=== PATIENT | female | born 1995 | race Caucasian/White ===

== ENCOUNTER 2017-07-16 16:29 | Inpatient (IN) | payer BC ==
[2017-07-16] MEDS ORDERED: Sodium Chloride 0.9% 10 ML Syringe FLUSH PRN (16:46)
[2017-07-16] MEDS ORDERED: fentaNYL 100 MCG/2 ML SDV IVPUSH PRN (16:46)
[2017-07-16] MEDS ORDERED: Ondansetron 4 MG Tab.DIS PO PRN (16:46)
[2017-07-16] MEDS ORDERED: Acetaminophen 325 MG Tab PO PRN ×2 (16:46→23:14)
--- NOTE | 2017-07-16 16:55 | PCM.LDHP ---
L&D History of Present Illness - General Date of Service: 07/16/17 (Labor) Admit Problem/Dx: Patient Status Order with Admit Dx/Problem 07/16/17 16:46 Patient Status [ADT] Routine Admission Diagnosis/Problem Admission Diagnosis/Problem Source of Information: Patient History Limitations: Reports: No Limitations - History of Present Illness Introduction:: This 21 year old G1 Po who is 39 6/7 weeks presents in active labor after SROM at home. Clear fluid and baby is moving, CE by staff 4-5/100/0 and leaking clear fluid. 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 Para: 0 LMP (Approximate): (NAN 07/17/17) H&P Review of Systems - Review of Systems: Review Of Systems: See Below General: Reports: No Symptoms HEENT: Reports: No Symptoms Pulmonary: Reports: No Symptoms Cardiovascular: Reports: No Symptoms Gastrointestinal: Reports: No Symptoms Genitourinary: Reports: No Symptoms Musculoskeletal: Reports: No Symptoms Skin: Reports: No Symptoms Psychiatric: Reports: No Symptoms Neurological: Reports: No Symptoms Hematologic/Lymphatic: Reports: No Symptoms Immunologic: Reports: No Symptoms L&D Exam - Exam Exam: See Below - OB Specific Contraction Intensity: Moderate to Strong Movement: Active Heart Tones: Present Heart Tones per Min: 145 Heart Rate (FHR) Variability: Moderate (6-25 bmp) Presentation: Vertex Estimated Weight: 7-8 pounds - Coats Score Coats Score Cervix Position: Anterior Coats Score Consistency: Soft Coats Score Effacement: >80% Coats Score Dilation: > 5 cm Coats Score Infant's Station: -1 ,0 Coats Score Total: 12 - Exam General: Alert, Oriented HEENT: PERRLA, Conjunctiva Clear, EACs Clear, EOMI, Hearing Intact, Mucosa Moist & [place], Nares Patent, Normal Nasal Septum, Posterior Pharynx Clear, TMs Clear Neck: Supple, Trachea Midline Lungs: Clear to Auscultation, Normal Respiratory Effort Cardiovascular: Regular Rate, Regular Rhythm GI/Abdominal Exam: Normal Bowel Sounds, Soft, Non-Tender, No Organomegaly, No Distention, No Abnormal Bruit, No Mass, Pelvis Stable Rectal Exam: Normal Exam, Normal Rectal Tone Genitourinary: Normal external exam, Normal bimanual exam, Normal speculum exam Back Exam: Normal Inspection, Full Range of Motion Extremities: Normal Inspection, Normal Range of Motion, Non-Tender, No Pedal Edema, Normal Capillary Refill Skin: Warm, Dry, Intact Neurological: Cranial Nerves Intact, Reflexes Equal Bilateral Psychiatric: Alert, Normal Affect, Normal Mood - Problem List (1) Spontaneous rupture of amniotic membranes SNOMED Code(s): 568337550 ICD Code: [id number] - Status: Acute Current Visit: Yes (2) Active labor at term SNOMED Code(s): 24185765 ICD Code: [id number] - Status: Acute Current Visit: Yes Problem List Initiated/Reviewed/Updated: Yes Orders Last 24hrs: Active Orders 24 hr Category Date Time Status Patient Status [ADT] Routine ADT 07/16/17 16:46 Ordered Antiembolic Devices [RC] .Routine Care 07/16/17 16:48 Ordered Communication Order [RC] ASDIRECTED Care 07/16/17 16:46 Ordered Heart Tones [RC] PER UNIT ROUTINE Care 07/16/17 16:46 Ordered May Shower [RC] ASDIRECTED Care 07/16/17 16:46 Ordered Notify Provider Vital Signs [RC] PRN Care 07/16/17 16:46 Ordered Notify Provider [RC] PRN Care 07/16/17 16:46 Ordered Up ad Mimi [RC] ASDIRECTED Care 07/16/17 16:46 Ordered VTE/DVT Education [RC] Click to Edit Care 07/16/17 16:48 Ordered Vital Signs [RC] PER UNIT ROUTINE Care 07/16/17 16:46 Ordered Clear Liquid Diet [DIET] Diet 07/16/17 Dinner Ordered CBC W/O DIFF,HEMOGRAM [HEME] Urgent Lab 07/16/17 16:46 Ordered DRUG SCREEN, URINE [URCHEM] Routine Lab 07/16/17 16:46 Ordered Acetaminophen [Tylenol] Med 07/16/17 16:46 Ordered 650 mg PO Q4H PRN Lactated Ringers @ 125 MLS/HR(1000ml) Med 07/16/17 17:00 Ordered Lactated Ringers [Ringers, Lactated] 1,000 ml IV ASDIRECTED Ondansetron [Zofran ODT] Med 07/16/17 16:46 Ordered 4 mg PO Q4H PRN Sodium Chloride 0.9% [Saline Flush] Med 07/16/17 16:46 Ordered 10 ml FLUSH ASDIRECTED PRN fentaNYL [Sublimaze] Med 07/16/17 16:46 Ordered 100 mcg IVPUSH Q1H PRN DVT/VTE Prophylaxis Reflex [OM.PC] Routine Oth 07/16/17 16:46 Ordered Saline Lock Insert [OM.PC] Routine Oth 07/16/17 16:46 Ordered Resuscitation Status Routine Resus Stat 07/16/17 16:46 Ordered Assessment/Plan Comment:: 07/16/17 21 year old G1 39 6/7 weeks, SROM at home with active labor pain management per patient request Plan for vaginal delivery
[2017-07-16] MEDS ORDERED: Lactated Ringers 1,000 ML IV SCH (17:00)
[2017-07-16] MEDS ORDERED: ePHEDrine 50 MG/ML SDV ONE (17:30)
--- NOTE | 2017-07-16 17:58 | PCM.PNLD ---
Labor Progress Note - VS & Meds Vital Signs: Last Vital Signs Temp 96.1 F 07/16/17 16:58 Pulse 102 H 07/16/17 16:58 Resp 18 07/16/17 16:58 BP 108/72 07/16/17 16:58 Pulse Ox 98 07/16/17 16:58 Active Medications: Current Medications Acetaminophen (Tylenol) 650 mg PO Q4H PRN PRN Reason: Pain (Mild 1-3) and fever Fentanyl (Sublimaze) 100 mcg IVPUSH Q1H PRN PRN Reason: Pain (moderate 4-6) Lactated Ringer's (Ringers, Lactated) 1,000 mls @ 125 mls/hr IV ASDIRECTED ERLIN Last Admin: 07/16/17 17:54 Dose: 125 mls/hr Oxytocin/Sodium Chloride (Pitocin In Ns 20 Units/1,000 Ml) 20 unit in 1,000 mls @ 6 mls/hr IV TITRATE ERLIN; Protocol Ondansetron HCl (Zofran Odt) 4 mg PO Q4H PRN PRN Reason: Nausea/Vomiting Sodium Chloride (Saline Flush) 10 ml FLUSH ASDIRECTED PRN PRN Reason: Keep Vein Open Discontinued Medications Ephedrine Sulfate (Ephedrine Sulfate) Confirm Administered Dose 50 mg .ROUTE .STK-MED ONE Stop: 07/16/17 17:31 - Uterine Contractions Uterine Monitoring Mode: External [place] Contraction Frequency (min): 1.5-2 Contraction Duration (sec): 6-80 Contraction Intensity: Moderate to Strong Uterine Resting Tone: Soft - Monitoring Monitor Mode: External Ultrasound Heart Rate (FHR) Variability: Moderate (6-25 bmp) Accelerations: Present, 15x15 Decelerations: None Strip Review: Category I - Vaginal Exam Dilation (cm): 7 Effacement (Percent): 100 Station: 0 Cervical Position: Anterior Sterile Vaginal Exam Performed By: Sofi Johnson Vaginal Exam Comment: ce before epidural - Labor Progress (Free Text) Labor Progress: Was in tub before epidural Now comfortable Planning vaginal delivery
[2017-07-16] MEDS ORDERED: Lanolin 100% Cream 40 GM Tube TOP PRN (20:50)
--- NOTE | 2017-07-16 20:52 | PCM.DEL ---
<Clara Kirk - Last Filed: 07/16/17 20:46> L & D Note - General Info Date of Service: 07/16/17 Mother's Due Date: 07/17/17 - Delivery Note Labor: Spontaneous Delivery Outcome: Livebirth Delivery Method: Spontaneous Vaginal Delivery-Single Presentation: Right Occiput Anterior ([place]) Nuchal Cord: None Anesthesia Type: Epidural (1744) Amniotic Fluid Description: Clear Episiotomy Type: None Laceration: Labial (1st degree right labial tear, not bleeding, not repaired) Placenta: Intact (bilobed with battledwarf insertion), Expressed Cord: 3 Vessels, True Knot Resuscitation Needed: No : Bulb Syringe, Stimulated, [place] Used Provider: Sofi Johnson Score 1 min: 9 Score 5 min: 9 Second Stage Interventions: Reports: Encouragement Given, Laboring Down, Pushing Effectively, Pushing, Feet in Foot Rests, Pushing, Squat Bar Pulling on Sheet (Pushing, hands and knees) Delivery Comments (Free Text/Narrative):: Stage 1 of Labor: 4512-1190; epidural placed Stage 2 of Labor: 5195-7318; 21 yo G1 now P1 at 39w6d delivered healthy baby girl in [place] at 2011 via . Effective pushing with bar and sheet, on hands and knees, and with knees to chest. Baby was placed on chest for [id number], bulb suctioned, with APGARs of 9 and 9, and weighed 8lb 6oz. First degree right labial tear, not bleeding, not repaired. Stage 3 of Labor: ; Placenta delivered with pitocin, gentle cord traction, fundal massage, and intentional pushing by mother. Placenta was bilobed and was found to have true knot with battledwarf insertion. EBL: 300mL - General Info Date of Service: 07/16/17 Functional Status: Reports: Pain Controlled - Review of Systems General: Reports: No Symptoms HEENT: Reports: No Symptoms Pulmonary: Reports: No Symptoms Cardiovascular: Reports: No Symptoms Gastrointestinal: Reports: No Symptoms Genitourinary: Reports: No Symptoms Musculoskeletal: Reports: No Symptoms Skin: Reports: No Symptoms Neurological: Reports: No Symptoms Psychiatric: Reports: No Symptoms - Patient Data Vitals - Most Recent: Last Vital Signs Temp 96.1 F 07/16/17 16:58 Pulse 96 07/16/17 18:30 Resp 18 07/16/17 18:30 BP 101/58 L 07/16/17 18:30 Pulse Ox 96 07/16/17 18:30 Weight - Most Recent: 216 lb Lab Results Last 24 Hours: Laboratory Results - last 24 hr 07/16/17 Range/Units 16:46 WBC 12.1 H (4.5-11.0) K/uL RBC 5.40 (3.30-5.50) M/uL Hgb 13.1 (12.0-15.0) g/dL Hct 40.2 (36.0-48.0) % MCV 74 L (80-98) fL MCH 24 L (27-31) pg MCHC 33 (32-36) % Plt Count 226 (150-400) K/uL Med Orders - Current: Current Medications Acetaminophen (Tylenol) 650 mg PO Q4H PRN PRN Reason: Pain (Mild 1-3) and fever Fentanyl (Sublimaze) 100 mcg IVPUSH Q1H PRN PRN Reason: Pain (moderate 4-6) Lactated Ringer's (Ringers, Lactated) 1,000 mls @ 125 mls/hr IV ASDIRECTED ERLIN Last Admin: 07/16/17 17:54 Dose: 125 mls/hr Oxytocin/Sodium Chloride (Pitocin In Ns 20 Units/1,000 Ml) 20 unit in 1,000 mls @ 6 mls/hr IV TITRATE ERLIN; Protocol Last Admin: 07/16/17 18:45 Dose: 999 munits/min, 2,997 mls/hr Ondansetron HCl (Zofran Odt) 4 mg PO Q4H PRN PRN Reason: Nausea/Vomiting Sodium Chloride (Saline Flush) 10 ml FLUSH ASDIRECTED PRN PRN Reason: Keep Vein Open Discontinued Medications Ephedrine Sulfate (Ephedrine Sulfate) Confirm Administered Dose 50 mg .ROUTE .STK-MED ONE Stop: 07/16/17 17:31 - Exam General: Alert, Oriented, No Acute Distress HEENT: EOMI, Mucous Membr. Moist/[place] Neck: Supple, Trachea Midline Lungs: Normal Respiratory Effort Cardiovascular: Regular Rate, Regular Rhythm GI/Abdominal Exam: Soft (with firm uterus), Non-Tender, No Distention (Female) Exam: Normal External Exam (except small first degree right labial tear, not bleeding, no need for repair) Back Exam: Normal Inspection, Full Range of Motion Extremities: Normal Inspection, Normal Range of Motion, Non-Tender, No Pedal Edema Skin: Warm, Dry, Intact Neurological: No New Focal Deficit Psy/Mental Status: Alert, Normal Affect, Normal Mood - Problem List & Annotations (1) Spontaneous vaginal delivery SNOMED Code(s): 58618311 Code(s): O80 - ENCOUNTER FOR FULL-TERM UNCOMPLICATED DELIVERY Status: Acute Priority: High Current Visit: Yes - Problem List Review Problem List Initiated/Reviewed/Updated: Yes - Plan Plan:: 07/16/17 21 year old G1 39 6/7 weeks, SROM at home with active labor pain management per patient request Plan for vaginal delivery 07/16/17 21 yo G1 now P1 at 39 6/7 had . Mom and baby doing well. Routine cares check vitals, monitor bleeding, ambulate as able Diet: regular RACQUEL for pain <Sofi Johnson - Last Filed: 07/17/17 08:42> - Patient Data Vitals - Most Recent: Last Vital Signs Temp 97.3 F 07/17/17 08:03 Pulse 79 07/17/17 08:03 Resp 16 07/17/17 08:03 BP 115/70 07/17/17 08:03 Pulse Ox 98 07/17/17 08:03 I&O - Last 24 Hours: Intake & Output 07/16/17 07/17/17 07/17/17 22:59 06:59 14:59 Intake Total 1000 Balance 1000 Lab Results Last 24 Hours: Laboratory Results - last 24 hr 07/16/17 07/16/17 07/17/17 Range/Units 16:46 20:50 05:11 WBC 12.1 H 14.8 H (4.5-11.0) K/uL RBC 5.40 4.60 (3.30-5.50) M/uL Hgb 13.1 11.3 L (12.0-15.0) g/dL Hct 40.2 34.4 L (36.0-48.0) % MCV 74 L 75 L (80-98) fL MCH 24 L 25 L (27-31) pg MCHC 33 33 (32-36) % Plt Count 226 192 (150-400) K/uL Neut % (Auto) 73 H (36-66) % Lymph % (Auto) 16 L (24-44) % [place] % (Auto) 10 H (2-6) % Eos % (Auto) 1 L (2-4) % Baso % (Auto) 0 (0-1) % Blood Type AB NEGATIVE Gel Antibody Screen Positive A* Antibody Identification Undetermined Specific Rhogam Indicated Yes, baby rh pos Med Orders - Current: Current Medications Acetaminophen (Tylenol) 650 mg PO Q4H PRN PRN Reason: Pain (mild 1-3) Emollient Ointment (Lansinoh Hpa) 0 gm TOP ASDIRECTED PRN PRN Reason: Sore Nipples Last Admin: 07/17/17 01:07 Dose: 1 applic Lactated Ringer's (Ringers, Lactated) 1,000 mls @ 125 mls/hr IV ASDIRECTED ERLIN Last Admin: 07/16/17 17:54 Dose: 125 mls/hr Ibuprofen (Motrin Bulk Bottle) 600 mg PO Q6H PRN PRN Reason: Cramping Last Admin: 07/17/17 01:07 Dose: 600 mg Ondansetron HCl (Zofran Odt) 4 mg PO Q4H PRN PRN Reason: Nausea/Vomiting Sodium Chloride (Saline Flush) 10 ml FLUSH ASDIRECTED PRN PRN Reason: Keep Vein Open Discontinued Medications Acetaminophen (Tylenol) 650 mg PO Q4H PRN PRN Reason: Pain (Mild 1-3) and fever Ephedrine Sulfate (Ephedrine Sulfate) Confirm Administered Dose 50 mg .ROUTE .STK-MED ONE Stop: 07/16/17 17:31 Last Admin: 07/16/17 23:13 Dose: Not Given Fentanyl (Sublimaze) 100 mcg IVPUSH Q1H PRN PRN Reason: Pain (moderate 4-6) Oxytocin/Sodium Chloride (Pitocin In Ns 20 Units/1,000 Ml) 20 unit in 1,000 mls @ 6 mls/hr IV TITRATE ERLIN; Protocol Last Admin: 07/16/17 18:45 Dose: 999 munits/min, 2,997 mls/hr - Exam (Female) Exam: Cervical Dilatation, Enlarged Uterus, Vaginal Bleeding - Problem List & Annotations (1) Spontaneous rupture of amniotic membranes SNOMED Code(s): 424525417 Code(s): FFY5868 - Status: Acute Current Visit: Yes (2) Active labor at term SNOMED Code(s): 87535573 Code(s): UJL8199 - Status: Acute Current Visit: Yes (3) Spontaneous vaginal delivery SNOMED Code(s): 43968917 Code(s): O80 - ENCOUNTER FOR FULL-TERM UNCOMPLICATED DELIVERY Status: Acute Priority: High Current Visit: Yes - My Orders Last 24 Hours: My Active Orders 07/16/17 16:46 Communication Order [RC] ASDIRECTED May Shower [RC] ASDIRECTED Notify Provider Vital Signs [RC] PRN Notify Provider [RC] PRN Up ad Mimi [RC] ASDIRECTED Vital Signs [RC] Q4H DRUG SCREEN, URINE [URCHEM] Routine Ondansetron [Zofran ODT] 4 mg PO Q4H PRN Sodium Chloride 0.9% [Saline Flush] 10 ml FLUSH ASDIRECTED PRN DVT/VTE Prophylaxis Reflex [OM.PC] Routine Saline Lock Insert [OM.PC] Routine Resuscitation Status Routine 07/16/17 16:48 Antiembolic Devices [RC] .Routine VTE/DVT Education [RC] Click to Edit 07/16/17 17:00 Lactated Ringers [Ringers, Lactated] 1,000 ml IV ASDIRECTED 07/16/17 17:30 Hale Catheter Insertion [Insert Urinary Catheter] [OM.PC] Q24H 07/16/17 20:50 Patient Status [ADT] Routine ANTIBODY IDENTIFICATION [BBK] Routine SCREEN [BBK] Routine RHIG WORKUP, [BBK] Routine Lanolin [Lansinoh HPA] 0 gm TOP ASDIRECTED PRN 07/16/17 20:52 Peripheral IV Discontinue [OM.PC] Routine 07/16/17 23:14 Acetaminophen [Tylenol] 650 mg PO Q4H PRN 07/16/17 23:15 Ibuprofen [Motrin Bulk Bottle] 600 mg PO Q6H PRN 07/16/17 23:47 RH IMMUNE GLOBULIN [BBK] Routine 07/17/17 08:36 Ready for Discharge [RC] PER UNIT ROUTINE 04/02/18 Breakfast Regular Diet [DIET] - Assessment Assessment:: 21 year old G1 now P1 without complications, small right labial tear, not repaired - Plan Plan:: I Sofi Johnson APRN, CNM, CFCORINA was present for the entire delivery procedure and attest that the operative note is accurate as written
[2017-07-16] MEDS ORDERED: Ibuprofen 200 MG Tab, 24 Tab Bulk Bottle PO PRN (23:15)
--- NOTE | 2017-07-17 03:21 | ANES ---
DATE OF SERVICE: 07/16/2017 LABOR EPIDURAL NOTE INDICATIONS: I was called by the OB department for a young lady requesting a labor epidural for labor pains. I was at the bedside with the patient and . Discussed a brief history and physical with the patient. The patient stated that she had no abnormal bleeding issues and her was uneventful. Platelet count was approximately 240 prior to the epidural and 1 L fluid was almost in when I was at the bedside. I discussed some risks and benefits with the patient, and the patient verbalized understanding and wished to proceed with the labor epidural. DESCRIPTION OF PROCEDURE: The patient was already sitting at the edge of bed. I Betadine prepped the lumbar region x3. I then placed a sterile drape and 1% lidocaine skin wheal and deep was done. A 17-gauge Tuohy needle was inserted at approximately the L4-L5 space. Loss of resistance was achieved. Negative CSF, negative paresthesia, negative heme were noted. Catheter was then easily placed through the Tuohy and the Tuohy needle was withdrawn without difficulty. Catheter was then pulled back to approximately 13 cm and securely taped and fastened. A 3 mL test dose was done. The patient showed no signs of local anesthetic toxicity or subarachnoid block. The patient was then laid supine with left uterine displacement. I then proceeded to give her 12 mL of 0.2% ropivacaine via the epidural and started her on a 0.2% ropivacaine drip at 12 mL an hour. Vital signs were stable throughout the procedure. The patient tolerated the procedure well. Post procedure and post ropivacaine bolus, vital signs were stable. The patient stated that she was comfortable and happy when I left the bedside. Time-out was done prior to the procedure starting. José Miguel Lima CRNA /[id number]
--- NOTE | 2017-07-17 08:35 | PCM.PNPP ---
- General Info Date of Service: 07/17/17 Admission Dx/Problem (Free Text): Patient Status Order with Admit Dx/Problem 07/16/17 16:46 Patient Status [ADT] Routine Admission Diagnosis/Problem Admission Diagnosis/Problem Functional Status: Reports: Pain Controlled - Review of Systems General: Reports: No Symptoms HEENT: Reports: No Symptoms Pulmonary: Reports: No Symptoms Cardiovascular: Reports: No Symptoms Gastrointestinal: Reports: No Symptoms Genitourinary: Reports: No Symptoms Musculoskeletal: Reports: No Symptoms Skin: Reports: No Symptoms Neurological: Reports: No Symptoms Psychiatric: Reports: No Symptoms - General Info Date of Service: 07/17/17 - Patient Data Vital Signs - Most Recent: Last Vital Signs Temp 97.3 F 07/17/17 08:03 Pulse 79 07/17/17 08:03 Resp 16 07/17/17 08:03 BP 115/70 07/17/17 08:03 Pulse Ox 98 07/17/17 08:03 Weight - Most Recent: 216 lb I&O - Last 24 Hours: Intake & Output 07/16/17 07/17/17 07/17/17 22:59 06:59 14:59 Intake Total 1000 Balance 1000 Lab Results - Last 24 Hours: Laboratory Results - last 24 hr 07/16/17 07/16/17 07/17/17 Range/Units 16:46 20:50 05:11 WBC 12.1 H 14.8 H (4.5-11.0) K/uL RBC 5.40 4.60 (3.30-5.50) M/uL Hgb 13.1 11.3 L (12.0-15.0) g/dL Hct 40.2 34.4 L (36.0-48.0) % MCV 74 L 75 L (80-98) fL MCH 24 L 25 L (27-31) pg MCHC 33 33 (32-36) % Plt Count 226 192 (150-400) K/uL Neut % (Auto) 73 H (36-66) % Lymph % (Auto) 16 L (24-44) % [place] % (Auto) 10 H (2-6) % Eos % (Auto) 1 L (2-4) % Baso % (Auto) 0 (0-1) % Blood Type AB NEGATIVE Gel Antibody Screen Positive A* Antibody Identification Undetermined Specific Rhogam Indicated Yes, baby rh pos Med Orders - Current: Current Medications Acetaminophen (Tylenol) 650 mg PO Q4H PRN PRN Reason: Pain (mild 1-3) Emollient Ointment (Lansinoh Hpa) 0 gm TOP ASDIRECTED PRN PRN Reason: Sore Nipples Last Admin: 07/17/17 01:07 Dose: 1 applic Lactated Ringer's (Ringers, Lactated) 1,000 mls @ 125 mls/hr IV ASDIRECTED ERLIN Last Admin: 07/16/17 17:54 Dose: 125 mls/hr Ibuprofen (Motrin Bulk Bottle) 600 mg PO Q6H PRN PRN Reason: Cramping Last Admin: 07/17/17 01:07 Dose: 600 mg Ondansetron HCl (Zofran Odt) 4 mg PO Q4H PRN PRN Reason: Nausea/Vomiting Sodium Chloride (Saline Flush) 10 ml FLUSH ASDIRECTED PRN PRN Reason: Keep Vein Open Discontinued Medications Acetaminophen (Tylenol) 650 mg PO Q4H PRN PRN Reason: Pain (Mild 1-3) and fever Ephedrine Sulfate (Ephedrine Sulfate) Confirm Administered Dose 50 mg .ROUTE .STK-MED ONE Stop: 07/16/17 17:31 Last Admin: 07/16/17 23:13 Dose: Not Given Fentanyl (Sublimaze) 100 mcg IVPUSH Q1H PRN PRN Reason: Pain (moderate 4-6) Oxytocin/Sodium Chloride (Pitocin In Ns 20 Units/1,000 Ml) 20 unit in 1,000 mls @ 6 mls/hr IV TITRATE ERLIN; Protocol Last Admin: 07/16/17 18:45 Dose: 999 munits/min, 2,997 mls/hr - Interaction Infant Disposition, : [place] in Room with Family Infant Interaction: Holding Infant Feeding: Breastfed Infant; Nursed Well Support Person: Significant Other - Recovery Exam Fundal Tone: Firm Fundal Level: At Umbilicus Fundal Placement: Midline Lochia Amount: Small Lochia Color: Rubra/Red Perineum Description: Intact, Minimal Bruising/Swelling Urinary Elimination: Voided - Exam General: Alert, Oriented HEENT: Pupils Equal Neck: Supple Lungs: Clear to Auscultation, Normal Respiratory Effort Cardiovascular: Regular Rate, Regular Rhythm GI/Abdominal Exam: Normal Bowel Sounds, Soft, Non-Tender, No Organomegaly, No Distention, No Abnormal Bruit, No Mass, Pelvis Stable Extremities: Normal Inspection, Normal Range of Motion, Non-Tender, No Pedal Edema, Normal Capillary Refill Skin: Warm, Dry, Intact Wound/Incisions: Healing Well Neurological: No New Focal Deficit Psy/Mental Status: Alert, Normal Affect, Normal Mood - Problem List & Annotations (1) Spontaneous rupture of amniotic membranes SNOMED Code(s): 096600791 Code(s): FSL5968 - Status: Acute Current Visit: Yes (2) Active labor at term SNOMED Code(s): 54357852 Code(s): HPM2100 - Status: Acute Current Visit: Yes - Problem List Review Problem List Initiated/Reviewed/Updated: Yes - My Orders Last 24 Hours: My Active Orders 07/16/17 16:46 Communication Order [RC] ASDIRECTED May Shower [RC] ASDIRECTED Notify Provider Vital Signs [RC] PRN Notify Provider [RC] PRN Up ad Mimi [RC] ASDIRECTED Vital Signs [RC] Q4H DRUG SCREEN, URINE [URCHEM] Routine Ondansetron [Zofran ODT] 4 mg PO Q4H PRN Sodium Chloride 0.9% [Saline Flush] 10 ml FLUSH ASDIRECTED PRN DVT/VTE Prophylaxis Reflex [OM.PC] Routine Saline Lock Insert [OM.PC] Routine Resuscitation Status Routine 07/16/17 16:48 Antiembolic Devices [RC] .Routine VTE/DVT Education [RC] Click to Edit 07/16/17 17:00 Lactated Ringers [Ringers, Lactated] 1,000 ml IV ASDIRECTED 07/16/17 17:30 Hale Catheter Insertion [Insert Urinary Catheter] [OM.PC] Q24H 07/16/17 20:50 Patient Status [ADT] Routine ANTIBODY IDENTIFICATION [BBK] Routine SCREEN [BBK] Routine RHIG WORKUP, [BBK] Routine Lanolin [Lansinoh HPA] 0 gm TOP ASDIRECTED PRN 07/16/17 20:52 Peripheral IV Discontinue [OM.PC] Routine 07/16/17 23:14 Acetaminophen [Tylenol] 650 mg PO Q4H PRN 07/16/17 23:15 Ibuprofen [Motrin Bulk Bottle] 600 mg PO Q6H PRN 07/16/17 23:47 RH IMMUNE GLOBULIN [BBK] Routine 07/17/17 Breakfast Regular Diet [DIET] - Assessment Assessment:: 07/17/17 21 yr old without complications doing well - Plan Plan:: 07/16/17 21 year old G1 39 6/7 weeks, SROM at home with active labor pain management per patient request Plan for vaginal delivery 07/16/17 21 yo G1 now P1 at 39 6/7 had . Mom and baby doing well. Routine cares check vitals, monitor bleeding, ambulate as able Diet: regular RACQUEL for pain 07/17/17 Doing well this morning Passed a large clot last night now bleeding light. Rhogam work up, Baby RH pos, Rhogam indicated. Mood happy HGB 11.3 Not much cramping want to go home today discharged later after is 24 hour old
== END 2017-07-17 21:13 | disposition home or self-care (01) | DRG 560 ==
LOC: JP.OBCHECK 16:29 → JP.OB 16:30 → OBSVTOIN 20:12 → JP.OB 20:12 → JP.MS 20:15
PROVIDERS: ADMIT Nurse Practitioner Family; ATTEND Nurse Practitioner Family
PROC: 10E0XZZ Delivery of Products of Conception, External Approach (ICD-10-PCS; principal; 2017-07-16)
DX: O70.0 First degree perineal laceration during delivery (principal); Z3A.39 39 weeks gestation of pregnancy; Z37.0 Single live birth
CPT/HCPCS: 36415; 59409; 85025; 85027; 85460; 86850; 86900; 86901; 99211; A9270-GY; J2590; J2790; J7120

== ENCOUNTER 2019-06-15 07:08 | Inpatient (IN) | payer BC ==
[2019-06-15] MEDS ORDERED: Misoprostol 50 MCG (1/2 of 100 MCG) Tab VAG ONE (07:17)
[2019-06-15] MEDS ORDERED: Misoprostol 50 MCG (1/2 of 100 MCG) Tab ONE ×2 (08:07→12:16)
[2019-06-15] MEDS ORDERED: Sodium Chloride 0.9% 10 ML Syringe FLUSH PRN (08:16)
[2019-06-15] MEDS ORDERED: fentaNYL 100 MCG/2 ML SDV IVPUSH PRN (08:16)
--- NOTE | 2019-06-15 08:25 | PCM.LDHP ---
L&D History of Present Illness - General Date of Service: 06/15/19 (induction) Admit Problem/Dx: Patient Status Order with Admit Dx/Problem 06/15/19 08:17 Patient Status [ADT] Routine Admission Diagnosis/Problem Admission Diagnosis/Problem Source of Information: Patient History Limitations: Reports: No Limitations - History of Present Illness Introduction:: This 23 year old NAN 06/15/19 presents for induction at term. CE: /-1. 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, : 2 Para: 1 LMP (Approximate): (NAN 06/15/19) - Infectious Disease History Infectious Disease History: Reports: Chicken Pox - Past Surgical History HEENT Surgical History: Reports: Other (See Below) Other HEENT Surgeries/Procedures: Denture surgery in the past (wisdom teeth) GI Surgical History: Reports: Cholecystectomy Social & Family History - Family History Family Medical History: Noncontributory - Tobacco Use Smoking Status *Q: Former Smoker Used Tobacco, but Quit: No - Caffeine Use Caffeine Use: Reports: Coffee, Energy Drinks - Recreational Drug Use Recreational Drug Use: No H&P Review of Systems - Review of Systems: Review Of Systems: See Below General: Reports: No Symptoms HEENT: Reports: No Symptoms Pulmonary: Reports: No Symptoms Cardiovascular: Reports: No Symptoms Gastrointestinal: Reports: No Symptoms Genitourinary: Reports: No Symptoms Musculoskeletal: Reports: No Symptoms Skin: Reports: No Symptoms Psychiatric: Reports: No Symptoms Neurological: Reports: No Symptoms Hematologic/Lymphatic: Reports: No Symptoms Immunologic: Reports: No Symptoms L&D Exam - Exam Exam: See Below - Vital Signs Vital Signs: Last Vital Signs Temp 97.6 F 06/15/19 07:15 Pulse 101 H 06/15/19 07:15 Resp 16 06/15/19 07:15 BP 129/88 06/15/19 07:15 Pulse Ox 95 06/15/19 07:15 Weight: 199 lb - OB Specific Contraction Intensity: Mild Movement: Active Heart Tones: Present Heart Tones per Min: 125 Heart Rate (FHR) Variability: Moderate (6-25 bmp) Presentation: Vertex Estimated Weight: 7-8 - Coats Score Coats Score Cervix Position: Midposition Coats Score Consistency: Soft Coats Score Effacement: 51-70% Coats Score Dilation: 3-4 cm Coats Score 's Station: -1 ,0 Coats Score Total: 9 - Exam General: Alert, Oriented HEENT: PERRLA, Conjunctiva Clear, Mucosa Moist & [place] Neck: Supple Lungs: Clear to Auscultation, Normal Respiratory Effort Cardiovascular: Regular Rate, Regular Rhythm GI/Abdominal Exam: Normal Bowel Sounds, Soft Rectal Exam: Normal Exam Genitourinary: Normal external exam, Cervical dilitation, Enlarged uterus Back Exam: Normal Inspection Extremities: Normal Inspection, No Pedal Edema Skin: Warm Neurological: Reflexes Equal Bilateral Psychiatric: Alert, Normal Affect, Normal Mood - Patient Data Lab Results Last 24 hrs: Laboratory Results - last 24 hr 06/15/19 06/15/19 06/15/19 Range/Units 07:16 07:16 07:25 WBC 11.2 H (4.5-11.0) K/uL RBC 4.95 (3.30-5.50) M/uL Hgb 12.4 (12.0-15.0) g/dL Hct 38.8 (36.0-48.0) % MCV 78 L (80-98) fL MCH 25 L (27-31) pg MCHC 32 (32-36) % Plt Count 195 (150-400) K/uL Urine Color Yellow (YELLOW) Urine Appearance Slightly cloudy A (CLEAR) Urine pH 7.0 (5.0-8.0) Ur Specific [place] 1.020 (1.008-1.030) Urine Protein Negative (NEGATIVE) mg/dL Urine Glucose (UA) Negative (NEGATIVE) mg/dL Urine Ketones Negative (NEGATIVE) mg/dL Urine Occult Blood Negative (NEGATIVE) Urine Nitrite Negative (NEGATIVE) Urine Bilirubin Negative (NEGATIVE) Urine Urobilinogen 0.2 (0.2-1.0) EU/dL Ur Leukocyte Esterase Negative (NEGATIVE) Urine RBC Not seen (0-5) Urine WBC 0-5 (0-5) Ur Epithelial Cells Few Amorphous Sediment Not seen Urine Bacteria Moderate Urine Mucus Not seen Urine Opiates Screen Presumptive positive H (NEGATIVE) Ur Oxycodone Screen Negative (NEGATIVE) Urine Methadone Screen Negative (NEGATIVE) Ur Propoxyphene Screen Negative (NEGATIVE) Ur Barbiturates Screen Negative (NEGATIVE) Ur Tricyclics Screen Negative (NEGATIVE) Ur Phencyclidine Scrn Negative (NEGATIVE) Ur Amphetamine Screen Negative (NEGATIVE) U Methamphetamines Scrn Negative (NEGATIVE) Urine MDMA Screen Negative (NEGATIVE) U Benzodiazepines Scrn Negative (NEGATIVE) U Cocaine Metab Screen Negative (NEGATIVE) U Marijuana (THC) Screen Negative (NEGATIVE) Result Diagrams: 06/15/19 07:16 - Problem List (1) SNOMED Code(s): 23564582 ICD Code: Z34.90 - ENCNTR FOR SUPRVSN OF NORMAL , UNSP, UNSP TRIMESTER Status: Acute Current Visit: Yes Qualifiers: Weeks of gestation: 40 weeks Qualified Code(s): Z3A.40 - 40 weeks gestation of (2) Elective induction of labor planned SNOMED Code(s): 352434260 ICD Code: AON7492 - Status: Acute Current Visit: Yes Problem List Initiated/Reviewed/Updated: Yes Orders Last 24hrs: Active Orders 24 hr Category Date Time Status Patient Status [ADT] Routine ADT 06/15/19 08:17 Ordered Antiembolic Devices [RC] .Routine Care 06/15/19 08:19 Ordered Communication Order [RC] ASDIRECTED Care 06/15/19 08:17 Ordered Communication Order [RC] Per Unit Routine Care 06/15/19 08:17 Ordered Communication Order [RC] Per Unit Routine Care 06/15/19 08:17 Ordered Communication Order [RC] Per Unit Routine Care 06/15/19 08:17 Ordered Heart Tones [RC] PER UNIT ROUTINE Care 06/15/19 08:17 Ordered Non Stress Test [RC] Click to Edit Care 06/15/19 08:17 Ordered Nitrous Oxide Delivery [RC] ASDIRECTED Care 06/15/19 08:17 Ordered Notify Provider Vital Signs [RC] PRN Care 06/15/19 08:16 Ordered Notify Provider [RC] PRN Care 06/15/19 08:17 Ordered Oxygen Therapy [RC] ASDIRECTED Care 06/15/19 08:17 Ordered Pulse Oximetry [RC] ASDIRECTED Care 06/15/19 08:17 Ordered VTE/DVT Education [RC] Click to Edit Care 06/15/19 08:19 Ordered Verify Patient Consent Obtain [RC] ASDIRECTED Care 06/15/19 08:17 Ordered Vital Signs [RC] PER UNIT ROUTINE Care 06/15/19 08:17 Ordered Vital Signs [RC] PER UNIT ROUTINE Care 06/15/19 08:17 Ordered Sodium Chloride 0.9% [Saline Flush] Med 06/15/19 08:16 Ordered 10 ml FLUSH ASDIRECTED PRN fentaNYL [Sublimaze] Med 06/15/19 08:16 Ordered 100 mcg IVPUSH Q1H PRN DVT/VTE Prophylaxis Reflex [OM.PC] Routine Oth 06/15/19 08:16 Ordered Saline Lock Insert [OM.PC] Routine Oth 06/15/19 08:17 Ordered Resuscitation Status Routine Resus Stat 06/15/19 08:16 Ordered Assessment/Plan Comment:: 06/15/19 23 year old 40 week present for induction at term per mother's request. HGB 11.2, PLT 195 CE /-1 PLAN: Miso 50 mcg vaginal at 0800 monitor for increase in contractions Nitrous for pain management anticipate a vaginal delivery later today
--- NOTE | 2019-06-15 12:31 | PCM.PNLD ---
Labor Progress Note - VS & Meds Vital Signs: Last Vital Signs Temp 97.6 F 06/15/19 07:15 Pulse 105 H 06/15/19 10:30 Resp 16 06/15/19 10:30 BP 120/68 06/15/19 10:30 Pulse Ox 97 06/15/19 10:30 Active Medications: Current Medications Fentanyl (Sublimaze) 100 mcg IVPUSH Q1H PRN PRN Reason: Pain (moderate 4-6) Oxytocin/Sodium Chloride (Pitocin In Ns 20 Units/1,000 Ml) 20 unit in 1,000 mls @ 999 mls/hr IV TITRATE ERLIN; Protocol Sodium Chloride (Saline Flush) 10 ml FLUSH ASDIRECTED PRN PRN Reason: Keep Vein Open Discontinued Medications Misoprostol (Cytotec) 50 mcg VAG ONETIME ONE Stop: 06/15/19 07:18 Last Admin: 06/15/19 08:02 Dose: 50 mcg Misoprostol (Cytotec) Confirm Administered Dose 50 mcg .ROUTE .STK-MED ONE Stop: 06/15/19 08:08 Last Admin: 06/15/19 08:59 Dose: Not Given Misoprostol (Cytotec) Confirm Administered Dose 50 mcg .ROUTE .STK-MED ONE Stop: 06/15/19 12:17 - Uterine Contractions Uterine Monitoring Mode: External [place] Contraction Frequency (min): 3-4 Contraction Duration (sec): 70-90 Contraction Intensity: Moderate Uterine Resting Tone: Soft - Monitoring Monitor Mode: Doppler/Auscultation Heart Rate (FHR) Baseline: 130 Heart Rate (FHR) Variability: Moderate (6-25 bmp) Accelerations: Present, 15x15 Decelerations: None Strip Review: Category I - Vaginal Exam Dilation (cm): 4 Effacement (Percent): 80 Station: 0 Cervical Position: Midposition Sterile Vaginal Exam Performed By: Sofi Johnson Vaginal Exam Comment: AROM clear fluid - Labor Progress (Free Text) Labor Progress: Active labor, AROM clear fluid.
[2019-06-15] MEDS ORDERED: Hydrocortisone 2.5% Crm 30 GM Tube TOP PRN (14:12)
[2019-06-15] MEDS ORDERED: Ibuprofen 200 MG Tab, 24 Tab Bulk Bottle PO PRN (14:12)
[2019-06-15] MEDS ORDERED: Lanolin 100% Cream 40 GM Tube TOP ONE (14:12)
[2019-06-15] MEDS ORDERED: Benzocaine 20% Top Spray 56 GM Bottle TOP ONE (14:12)
[2019-06-15] MEDS ORDERED: Witch Hazel Medicated Pads 100/Jar TOP ONE (14:12)
[2019-06-15] MEDS ORDERED: Acetaminophen 325 MG Tab, 50 Tab Bulk Bottle PO PRN (14:12)
--- NOTE | 2019-06-15 14:34 | PCM.DEL ---
L & D Note - General Info Date of Service: 06/15/19 (Childbirth) Mother's Due Date: 06/15/19 - Delivery Note Labor: Spontaneous Cervical Ripening Method: Misoprostil Delivery Outcome: Livebirth Delivery Method: Spontaneous Vaginal Delivery-Single Infant Delivery Mode: Spontaneous Presentation: Left Occiput Anterior (DANITA) Nuchal Cord: None Anesthesia Type: Nitrous Oxide Amniotic Fluid Description: Clear Episiotomy Type: None Suture type: Other (small tear above her clitoris stopping no repair) Placenta: Intact, Spontaneous, Expressed Cord: 3 Vessels Estimated Blood Loss: 300 Resuscitation Needed: No [place]: Stimulated, Warmed, [place] Used, Warmer Used Provider: Sofi Johnson Score 1 min: 8 (color, tone) Score 5 min: 9 (color) Second Stage Interventions: Reports: Second Nurse Reviewed Heart Tones, Encouragement Given, Pushing Effectively, Pushing, McRobert's Position Delivery Comments (Free Text/Narrative):: This 23 year old who is 40 weeks delivered at 1342 via a viable female infant over an intact perineum in DANITA position. [place] was placed on mother's abdomen where she was dried and stimulated. She was not breathing or crying so the cord was double clamped and cut and baby was taken to the warmer by myself where she was stimulated and dried, she cried spontaneously. She was then given to dad for skin to skin. I then turned my attention to mother. The Placenta was expressed spontaneously intact after giving mother 100mcg of Fentanyl. Cord bloods obtained. No lacerations to the perineum, rectum, cervix or vaginal. She did have a bleeding tear just above her clitoris which I put pressure on and it stopped so no repair. EBL 300cc Mother and baby to post in stable condition. weight 8-8 First stage 9902-5505 Second stage 5795-0278 Third stage 6094-2758 - General Info Date of Service: 06/15/19 Admission Dx/Problem (Free Text): Patient Status Order with Admit Dx/Problem 06/15/19 08:17 Patient Status [ADT] Routine Admission Diagnosis/Problem Admission Diagnosis/Problem Functional Status: Reports: Pain Controlled - Review of Systems General: Reports: No Symptoms HEENT: Reports: No Symptoms Pulmonary: Reports: No Symptoms Cardiovascular: Reports: No Symptoms Gastrointestinal: Reports: No Symptoms Genitourinary: Reports: No Symptoms Musculoskeletal: Reports: No Symptoms Skin: Reports: No Symptoms Neurological: Reports: No Symptoms Psychiatric: Reports: No Symptoms - Patient Data Vitals - Most Recent: Last Vital Signs Temp 98.0 F 06/15/19 12:10 Pulse 101 H 06/15/19 12:10 Resp 18 06/15/19 12:10 BP 127/72 06/15/19 12:10 Pulse Ox 99 06/15/19 12:10 Weight - Most Recent: 199 lb Lab Results Last 24 Hours: Laboratory Results - last 24 hr 06/15/19 06/15/19 06/15/19 Range/Units 07:16 07:16 07:25 WBC 11.2 H (4.5-11.0) K/uL RBC 4.95 (3.30-5.50) M/uL Hgb 12.4 (12.0-15.0) g/dL Hct 38.8 (36.0-48.0) % MCV 78 L (80-98) fL MCH 25 L (27-31) pg MCHC 32 (32-36) % Plt Count 195 (150-400) K/uL Urine Color Yellow (YELLOW) Urine Appearance Slightly cloudy A (CLEAR) Urine pH 7.0 (5.0-8.0) Ur Specific [place] 1.020 (1.008-1.030) Urine Protein Negative (NEGATIVE) mg/dL Urine Glucose (UA) Negative (NEGATIVE) mg/dL Urine Ketones Negative (NEGATIVE) mg/dL Urine Occult Blood Negative (NEGATIVE) Urine Nitrite Negative (NEGATIVE) Urine Bilirubin Negative (NEGATIVE) Urine Urobilinogen 0.2 (0.2-1.0) EU/dL Ur Leukocyte Esterase Negative (NEGATIVE) Urine RBC Not seen (0-5) Urine WBC 0-5 (0-5) Ur Epithelial Cells Few Amorphous Sediment Not seen Urine Bacteria Moderate Urine Mucus Not seen Urine Opiates Screen Presumptive positive H (NEGATIVE) Ur Oxycodone Screen Negative (NEGATIVE) Urine Methadone Screen Negative (NEGATIVE) Ur Propoxyphene Screen Negative (NEGATIVE) Ur Barbiturates Screen Negative (NEGATIVE) Ur Tricyclics Screen Negative (NEGATIVE) Ur Phencyclidine Scrn Negative (NEGATIVE) Ur Amphetamine Screen Negative (NEGATIVE) U Methamphetamines Scrn Negative (NEGATIVE) Urine MDMA Screen Negative (NEGATIVE) U Benzodiazepines Scrn Negative (NEGATIVE) U Cocaine Metab Screen Negative (NEGATIVE) U Marijuana (THC) Screen Negative (NEGATIVE) Med Orders - Current: Current Medications Acetaminophen (Tylenol Bulk Bottle) 0 mg PO Q4H PRN PRN Reason: Pain Benzocaine (Xfmb-G-Safwruv 20% [place]) 0 gm TOP Q4H ONE Stop: 06/15/19 14:13 Emollient Ointment (Lansinoh Hpa) 1 gm TOP ASDIRECTED ONE Stop: 06/15/19 14:13 Fentanyl (Sublimaze) 100 mcg IVPUSH Q1H PRN PRN Reason: Pain (moderate 4-6) Hydrocortisone (Proctozone-Hc 2.5% Crm) 1 gm TOP ASDIRECTED PRN PRN Reason: Itching Oxytocin/Sodium Chloride (Pitocin In Ns 20 Units/1,000 Ml) 20 unit in 1,000 mls @ 999 mls/hr IV TITRATE ERLIN; Protocol Ibuprofen (Motrin Bulk Bottle) 600 mg PO Q6H PRN PRN Reason: Pain Sodium Chloride (Saline Flush) 10 ml FLUSH ASDIRECTED PRN PRN Reason: Keep Vein Open Witch Ginny (Tucks) 1 pad TOP ASDIRECTED ONE Stop: 06/15/19 14:13 Discontinued Medications Misoprostol (Cytotec) 50 mcg VAG ONETIME ONE Stop: 06/15/19 07:18 Last Admin: 06/15/19 08:02 Dose: 50 mcg Misoprostol (Cytotec) Confirm Administered Dose 50 mcg .ROUTE .STK-MED ONE Stop: 06/15/19 08:08 Last Admin: 06/15/19 08:59 Dose: Not Given Misoprostol (Cytotec) Confirm Administered Dose 50 mcg .ROUTE .STK-MED ONE Stop: 06/15/19 12:17 - Exam General: Alert, Oriented HEENT: Pupils Equal, Pupils Reactive Neck: Supple Lungs: Clear to Auscultation, Normal Respiratory Effort Cardiovascular: Regular Rate, Regular Rhythm GI/Abdominal Exam: Soft (Female) Exam: Cervical Dilatation, Enlarged Uterus, Vaginal Bleeding Back Exam: Normal Inspection, Full Range of Motion Extremities: Normal Range of Motion, No Pedal Edema, Normal Capillary Refill Skin: Warm, Dry Neurological: No New Focal Deficit Psy/Mental Status: Alert, Normal Affect, Normal Mood - Problem List & Annotations (1) SNOMED Code(s): 95654602 Code(s): Z34.90 - ENCNTR FOR SUPRVSN OF NORMAL , UNSP, UNSP TRIMESTER Status: Acute Current Visit: Yes Qualifiers: Weeks of gestation: 40 weeks Qualified Code(s): Z3A.40 - 40 weeks gestation of (2) Elective induction of labor planned SNOMED Code(s): 166126040 Code(s): YLY6642 - Status: Acute Current Visit: Yes (3) Spontaneous vaginal delivery SNOMED Code(s): 780575910 Code(s): O80 - ENCOUNTER FOR FULL-TERM UNCOMPLICATED DELIVERY Status: Acute Priority: High Current Visit: Yes (4) Active labor at term SNOMED Code(s): 55100600 Code(s): VYY8998 - Status: Acute Current Visit: Yes - Problem List Review Problem List Initiated/Reviewed/Updated: Yes - My Orders Last 24 Hours: My Active Orders 06/15/19 08:16 Notify Provider Vital Signs [RC] PRN Sodium Chloride 0.9% [Saline Flush] 10 ml FLUSH ASDIRECTED PRN fentaNYL [Sublimaze] 100 mcg IVPUSH Q1H PRN DVT/VTE Prophylaxis Reflex [OM.PC] Routine Resuscitation Status Routine 06/15/19 08:17 Communication Order [RC] ASDIRECTED Communication Order [RC] Per Unit Routine Communication Order [RC] Per Unit Routine Communication Order [RC] Per Unit Routine Non Stress Test [RC] Click to Edit Nitrous Oxide Delivery [RC] ASDIRECTED Notify Provider [RC] PRN Oxygen Therapy [RC] ASDIRECTED Pulse Oximetry [RC] ASDIRECTED Verify Patient Consent Obtain [RC] ASDIRECTED Vital Signs [RC] PER UNIT ROUTINE Saline Lock Insert [OM.PC] Routine 06/15/19 08:19 Antiembolic Devices [RC] .Routine VTE/DVT Education [RC] Click to Edit 06/15/19 09:15 Oxytocin/Normal Saline [Pitocin in NS 20 Units/1,000 ML] 20 unit in 1,000 ml IV TITRATE 06/15/19 14:12 Patient Status [ADT] Routine May Shower [RC] ASDIRECTED Up ad Mimi [RC] ASDIRECTED Vital Signs [RC] PFP Acetaminophen [Tylenol Bulk Bottle] See Dose Instructions PO Q4H PRN Benzocaine [Ritv-M-Bwpilok 20% [place]] See Dose Instructions TOP Q4H ONE Hydrocortisone [Proctozone-HC 2.5% Crm] 1 gm TOP ASDIRECTED PRN Ibuprofen [Motrin Bulk Bottle] 600 mg PO Q6H PRN Lanolin [Lansinoh HPA] 1 gm TOP ASDIRECTED ONE witch Ginny [Tucks] 1 pad TOP ASDIRECTED ONE Assess Lochia [WOMSER] Per Unit Routine Assess Uterine Involution [WOMSER] Per Unit Routine 06/15/19 14:13 Ice Therapy [OM.PC] Per Unit Routine Perineal Care [OM.PC] Per Unit Routine Peripheral IV Discontinue [OM.PC] Routine Sitz Bath [OM.PC] Per Unit Routine 06/15/19 Dinner Regular Diet [DIET] 06/16/19 05:11 CBC WITH AUTO DIFF [HEME] AM - Assessment Assessment:: 23 yr old 40 weeks gestation without complications female infant, - Plan Plan:: 06/15/19 23 year old 40 week present for induction at term per mother's request. HGB 11.2, PLT 195 CE /-1 PLAN: Miso 50 mcg vaginal at 0800 monitor for increase in contractions Nitrous for pain management anticipate a vaginal delivery later today 06/15/19 Routine cares support cbc in am 24-48 hour stay
[2019-06-15] MEDS ORDERED: Ondansetron 4 MG Tab.DIS PO PRN (19:05)
[2019-06-16] MEDS ORDERED: Lanolin 100% Cream 40 GM Tube TOP PRN (10:16)
--- NOTE | 2019-06-16 12:24 | PCM.PNPP ---
- General Info Date of Service: 06/16/19 (PPD 1 D/C) Admission Dx/Problem (Free Text): Patient Status Order with Admit Dx/Problem 06/15/19 08:17 Patient Status [ADT] Routine Admission Diagnosis/Problem Admission Diagnosis/Problem Functional Status: Reports: Pain Controlled - Review of Systems General: Reports: No Symptoms HEENT: Reports: No Symptoms Pulmonary: Reports: No Symptoms Cardiovascular: Reports: No Symptoms Gastrointestinal: Reports: No Symptoms Genitourinary: Reports: No Symptoms Musculoskeletal: Reports: No Symptoms Skin: Reports: No Symptoms Neurological: Reports: No Symptoms Psychiatric: Reports: No Symptoms - General Info Date of Service: 06/16/19 - Patient Data Vital Signs - Most Recent: Last Vital Signs Temp 97.2 F 06/16/19 08:54 Pulse 68 06/16/19 08:54 Resp 18 06/16/19 08:54 BP 112/53 L 06/16/19 08:54 Pulse Ox 97 06/16/19 08:54 Weight - Most Recent: 199 lb I&O - Last 24 Hours: Intake & Output 06/15/19 06/16/19 06/16/19 22:59 06:59 14:59 Intake Total 3902 Balance 3902 Lab Results - Last 24 Hours: Laboratory Results - last 24 hr 06/15/19 06/16/19 Range/Units 17:06 05:57 WBC 14.0 H (4.5-11.0) K/uL RBC 4.56 (3.30-5.50) M/uL Hgb 11.5 L (12.0-15.0) g/dL Hct 36.1 (36.0-48.0) % MCV 79 L (80-98) fL MCH 25 L (27-31) pg MCHC 32 (32-36) % Plt Count 186 (150-400) K/uL Neut % (Auto) 76 H (36-66) % Lymph % (Auto) 14 L (24-44) % [place] % (Auto) 8 H (2-6) % Eos % (Auto) 2 (2-4) % Baso % (Auto) 0 (0-1) % Blood Type AB NEGATIVE Gel Antibody Screen Negative Rhogam Indicated Yes, baby rh pos Med Orders - Current: Current Medications Acetaminophen (Tylenol Bulk Bottle) 0 mg PO Q4H PRN PRN Reason: Pain Emollient Ointment (Lansinoh Hpa) 1 gm TOP ASDIRECTED PRN PRN Reason: nipple pain Last Admin: 06/16/19 10:31 Dose: 1 gram Fentanyl (Sublimaze) 100 mcg IVPUSH Q1H PRN PRN Reason: Pain (moderate 4-6) Last Admin: 06/15/19 13:50 Dose: 100 mcg Hydrocortisone (Proctozone-Hc 2.5% Crm) 1 gm TOP ASDIRECTED PRN PRN Reason: Itching Oxytocin/Sodium Chloride (Pitocin In Ns 20 Units/1,000 Ml) 20 unit in 1,000 mls @ 999 mls/hr IV TITRATE ERLIN; Protocol Last Admin: 06/15/19 14:45 Dose: 999 mls/hr, 999 mls/hr Ibuprofen (Motrin Bulk Bottle) 600 mg PO Q6H PRN PRN Reason: Pain Last Admin: 06/15/19 14:42 Dose: 600 mg Ondansetron HCl (Zofran Odt) 4 mg PO Q4H PRN PRN Reason: Nausea/Vomiting Last Admin: 06/15/19 19:28 Dose: 4 mg Sodium Chloride (Saline Flush) 10 ml FLUSH ASDIRECTED PRN PRN Reason: Keep Vein Open Discontinued Medications Benzocaine (Dsei-V-Wtlxedp 20% [place]) 0 gm TOP Q4H ONE Stop: 06/15/19 14:13 Last Admin: 06/15/19 14:43 Dose: 1 spray Emollient Ointment (Lansinoh Hpa) 1 gm TOP ASDIRECTED ONE Stop: 06/15/19 14:13 Last Admin: 06/15/19 22:28 Dose: Not Given Misoprostol (Cytotec) 50 mcg VAG ONETIME ONE Stop: 06/15/19 07:18 Last Admin: 06/15/19 08:02 Dose: 50 mcg Misoprostol (Cytotec) Confirm Administered Dose 50 mcg .ROUTE .STK-MED ONE Stop: 06/15/19 08:08 Last Admin: 06/15/19 08:59 Dose: Not Given Misoprostol (Cytotec) Confirm Administered Dose 50 mcg .ROUTE .STK-MED ONE Stop: 06/15/19 12:17 Last Admin: 06/15/19 14:39 Dose: Not Given Witjuan Gross (Tucks) 1 pad TOP ASDIRECTED ONE Stop: 06/15/19 14:13 Last Admin: 06/15/19 22:28 Dose: Not Given - Infant Interaction Disposition, : [place] in Room with Family Interaction: Holding Infant Feeding: Breastfed ; Nursed Well Support Person: Significant Other - Recovery Exam Fundal Tone: Firm Fundal Level: At Umbilicus Fundal Placement: Midline Lochia Amount: Moderate Lochia Color: Rubra/Red Perineum Description: Intact, Minimal Bruising/Swelling Episiotomy/Laceration: Approximated Bladder Status: Voiding Urinary Elimination: Voided - Exam General: Alert, Oriented HEENT: Pupils Equal, Pupils Reactive, EOMI, Mucous Membr. Moist/[place] Neck: Supple Lungs: Clear to Auscultation, Normal Respiratory Effort Cardiovascular: Regular Rate, Regular Rhythm GI/Abdominal Exam: Soft, Non-Tender Extremities: No Pedal Edema, Normal Capillary Refill Skin: Warm, Dry, Intact Wound/Incisions: Healing Well Neurological: No New Focal Deficit Psy/Mental Status: Alert, Normal Affect, Normal Mood - Problem List & Annotations (1) SNOMED Code(s): 27181235 Code(s): Z34.90 - ENCNTR FOR SUPRVSN OF NORMAL , UNSP, UNSP TRIMESTER Status: Acute Current Visit: Yes Qualifiers: Weeks of gestation: 40 weeks Qualified Code(s): Z3A.40 - 40 weeks gestation of (2) Elective induction of labor planned SNOMED Code(s): 054647072 Code(s): OON3183 - Status: Acute Current Visit: Yes (3) Spontaneous vaginal delivery SNOMED Code(s): 384052380 Code(s): O80 - ENCOUNTER FOR FULL-TERM UNCOMPLICATED DELIVERY Status: Acute Priority: High Current Visit: Yes (4) Active labor at term SNOMED Code(s): 84076456 Code(s): PWC8541 - Status: Acute Current Visit: Yes - Problem List Review Problem List Initiated/Reviewed/Updated: Yes - My Orders Last 24 Hours: My Active Orders 06/15/19 14:12 Patient Status [ADT] Routine May Shower [RC] ASDIRECTED Up ad Mimi [RC] ASDIRECTED Vital Signs [RC] PFP Acetaminophen [Tylenol Bulk Bottle] See Dose Instructions PO Q4H PRN Hydrocortisone [Proctozone-HC 2.5% Crm] 1 gm TOP ASDIRECTED PRN Ibuprofen [Motrin Bulk Bottle] 600 mg PO Q6H PRN Assess Lochia [WOMSER] Per Unit Routine Assess Uterine Involution [WOMSER] Per Unit Routine 06/15/19 14:13 Ice Therapy [OM.PC] Per Unit Routine Perineal Care [OM.PC] Per Unit Routine Peripheral IV Discontinue [OM.PC] Routine Sitz Bath [OM.PC] Per Unit Routine 06/15/19 17:06 SCREEN [BBK] Routine PATIENT RETYPE [BBK] Routine RHOGAM, [RHIG WORKUP, ] [BBK] Routine 06/15/19 19:05 Ondansetron [Zofran ODT] 4 mg PO Q4H PRN 06/15/19 Dinner Regular Diet [DIET] 06/16/19 10:16 Lanolin [Lansinoh HPA] 1 gm TOP ASDIRECTED PRN - Assessment Assessment:: 23 yr old 40 weeks gestation without complications female infant, 06/16/19 uncomplicated yesterday Feels good and is happy up and about voided Flow moderate to light some cramping, using NSAIDs wants to go home HGB 11.5 Rhogam given - Plan Plan:: 06/15/19 23 year old 40 week present for induction at term per mother's request. HGB 11.2, PLT 195 CE 1 PLAN: Miso 50 mcg vaginal at 0800 monitor for increase in contractions Nitrous for pain management anticipate a vaginal delivery later today 06/15/19 Routine cares support cbc in am 24-48 hour stay 06/16/19 Home today See Guille DAVIS in 6 weeks for post visit
== END 2019-06-16 15:00 | disposition home or self-care (01) | DRG 560 ==
LOC: JP.OB 07:08 → OBSVTOIN 13:42 → JP.MS 18:09
PROVIDERS: ADMIT Nurse Practitioner Family; ATTEND Nurse Practitioner Family
PROC: 10E0XZZ Delivery of Products of Conception, External Approach (ICD-10-PCS; principal; 2019-06-15)
PROC: 3E0P7VZ Introduction of Hormone into Female Reproductive, Via Natural or Artificial Opening (ICD-10-PCS; 2019-06-15)
PROC: 10907ZC Drainage of Amniotic Fluid, Therapeutic from Products of Conception, Via Natural or Artificial Opening (ICD-10-PCS; 2019-06-15)
DX: O48.0 Post-term pregnancy (principal); O71.89 Other specified obstetric trauma; Z3A.40 40 weeks gestation of pregnancy; Z37.0 Single live birth; Z79.899 Other long term (current) drug therapy; Z87.891 Personal history of nicotine dependence; Z90.49 Acquired absence of other specified parts of digestive tract
CPT/HCPCS: 36415; 59409; 59414; 80305-QW; 81001; 85025; 85027; 85460; 86850; 86900; 86901; A9270-GY; J2590; J2790; J3010